=== PATIENT | female | born 1995 ===

== ENCOUNTER 2019-11-19 19:18 | Emergency (ER) | payer SELFPAY ==
[~2019-11-19] VITALS: Ht 162.6 cm; Wt 54.5 kg
[2019-11-19 19:50] VITALS: TEMP 98
[2019-11-19 21:32] LABS: STREP SCREEN POSITIVE
[2019-11-19] MEDS ORDERED: AMOXICILLIN 50500 MG PO ×3 (21:47→21:59)
[2019-11-19 22:24] VITALS: BP 92/62; PULSE 92
== END 2019-11-19 22:00 | disposition home or self-care (01) ==
LOC: COL.ER 19:18
PROVIDERS: Nurse Practitioner
DX: J02.0 Streptococcal pharyngitis (principal)